=== PATIENT | female | born 1990 | race Caucasian/White ===

== ENCOUNTER 2016-09-20 20:33 | Emergency (ER) | payer OTHER ==
[~2016-09-20] VITALS: Ht 160 cm; Wt 50.0 kg
[~2016-09-20 20:33] MED LIST: LACT PO; METR-1 PO
[2016-09-20 20:38] VITALS: BP 132/96; PULSE 103; RESP 16; TEMP 98.1; O2SAT 99
--- NOTE | 2016-09-20 21:20 | PD ---
HPI Chief Complaint: Related Problem Time Seen by Provider: 21:16 Travel History International Travel<30 days: No Contact w/Intl Traveler<30days: No Traveled to known affect area: No History of Present Illness HPI Patient comes in for evaluation of bilateral hand swelling over the past days. Patient states they're only swollen and the morning when she first wakes up and then by noon they have resolved. Patient states she is about 4 weeks and contact her OB that she has not seen yet, but has an appointment on and was told to come to the emergency department for further treatment and evaluation. Patient states her hands used to do this when she was using IV drugs but has been clean since June. Patient denies any fevers, pain with this, loss or change in bowel or bladder, vaginal discharge, vaginal bleeding, dysuria, back pain, nausea, vomiting, chest pain, shortness of breath, or other concerns. Patient does states that she eats a lot of salty foods especially pickles. PFSH Past Medical History Autoimmune Disease: No Anxiety: Yes Cancer: No Cardiovascular Problems: Yes Diminished Hearing: No Endocrine: No Genitourinary: No Immune Disorder: No Musculoskeletal: No Neurologic: No Psychiatric: No Reproductive: No Respiratory: No Immunizations Current: No ?: LMP: 08/13/16 : 2 Para: 2 Miscarriage: 0 : 0 Past Surgical History AICD: No Arteriovenous Shunt: No Insulin Pump: No Joint Replacement: No Pacemaker: No Social History Alcohol Use: No Tobacco Use: Yes (1 ppd) Substance Use: No (reformed iv dilaudid 3x/d/cocaine sometimes) Allergies-Medications (Allergen,Severity, Reaction): Coded Allergies: *MDRO Multi-Drug Resistant Organism (Unverified Adverse Reaction, Unknown , 09/20/16) 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 Cleared per Infection Control. Reported Meds & Prescriptions Reported Meds & Active Scripts Active Keflex (Cephalexin) 500 Mg Cap 500 Mg PO Q12H 10 Days Review of Systems Except as stated in HPI: all other systems reviewed are Neg Physical Exam Narrative GENERAL: Well-developed, well nourished, in no acute distress, and non-ill appearing. SKIN: Warm and dry. HEAD: Atraumatic. Normocephalic. EYES: Pupils equal and round. EOMI. No scleral icterus. No injection or drainage. ENT: No nasal bleeding or discharge. Mucous membranes pink and moist. NECK: Trachea midline. Supple. No nuclear rigidity. RESPIRATORY: No accessory muscle use. No respiratory distress. MUSCULOSKELETAL: No obvious deformities. No clubbing. No cyanosis. No edema. Full range of motion. Wrist: FROM and equal BL with passive flexion, extension, and pronation/supination. Capillary refill less than 2 seconds and equal BL. FROM and equal BL. Strength equal BL. NV intact. Flexion and extension of thumb equal BL. Equal strength and movement with abduction/adductions of BL fingers. Director [employer] strength equal BL. No tenderness to the anatomical snuffbox. NEUROLOGICAL: Awake and alert. No obvious cranial nerve deficits. Motor grossly within normal limits. Normal speech. PSYCHIATRIC: Appropriate mood and affect; insight and judgment normal. Data Data Last Documented VS Vital Signs Date Time Temp Pulse Resp B/P Pulse Ox O2 Delivery O2 Flow Rate FiO2 09/20/16 20:38 98.1 103 16 132/96 99 Orders Urinalysis - C+S If Indicated (09/20/16 21:15) Urine Culture (09/20/16 21:25) Labs Laboratory Tests Test 09/20/16 21:25 Urine Color YELLOW Urine Turbidity HAZY Urine pH 7.0 Urine Specific [place] 1.017 Urine Protein NEG mg/dL Urine Glucose (UA) NEG mg/dL Urine Ketones TRACE mg/dL Urine Occult Blood NEG Urine Nitrite NEG Urine Bilirubin NEG Urine Urobilinogen LESS THAN 2.0 MG/DL Urine Leukocyte Esterase MOD Urine RBC 12 /hpf Urine WBC 25 /hpf Urine Squamous Epithelial 19 /hpf Cells Urine Bacteria OCC /hpf Microscopic Urinalysis Comment CULTURE INDICATED MDM Medical Decision Making Medical Screen Exam Complete: Yes Emergency Medical Condition: No Differential Diagnosis Edema, abscess, cellulitis, UTI, preeclampsia, other Narrative Course Patient in no obvious distress upon re-evaluation. All pertinent laboratory result(s) discussed with patient. Patient was asked if they wanted to speak to my attending, which the patient did not wish to do at this time. Any questions/ concerns in reference to patient diagnosis/condition discussed and clarified prior to patient's discharge. Reinforced sheer importance of close follow up with patient's OB as scheduled. Instructed patient to return to ED immediately, if symptoms return/worsen. Pt showed understanding of above instructions. Further instructions and recommendations were detailed in discharge paperwork. Pt ambulated without difficulty out of ED at discharge. Diagnosis Primary Impression: Urinary tract infection Qualified Code: N39.0 - Urinary tract infection without hematuria, site unspecified Additional Impression: Bilateral hand swelling Patient Instructions: General Instructions, Urinary Tract Infection in (ED) Additional Instructions: Follow-up with your OB on as scheduled. Take all medication as prescribed. Continue taking her vitamins. Reduce your sodium intake. Return to the emergency department if symptoms get worse. Med/Other Pt SpecificInfo: Prescription(s) given Scripts Cephalexin (Keflex)500 Mg Xxy721 Mg PO Q12H 10 Days Ref 0 Prov:Tova Price MD 09/20/16 Disposition: 01 DISCHARGE HOME Condition: Stable Fortunato Tobar Sep 20, 2016 21:20
[2016-09-20 22:24] LABS: BACTERIA, URINE OCC /hpf; BLOOD, URINE NEG (NEG); COMMENT (UR) CULTURE INDICATED; CULTURE IF INDICATED CULTURE INDICATED; GLUCOSE,URINE NEG (NEG); KETONE, URINE TRACE mg/dL (NEG); NITRITE,URINE NEG (NEG); SQUAMOUS EPITHELIAL CELL URINE 19 /hpf (0-5); URINE COLOR YELLOW (YELLW/STRAW)
[2016-09-20] MEDS ORDERED: CEPH-460 PO (22:33)
== END 2016-09-20 22:36 | disposition home or self-care (01) ==
LOC: NEPB 20:33
DX: O23.41 Unspecified infection of urinary tract in pregnancy, first trimester (principal); B96.89 Other specified bacterial agents as the cause of diseases classified elsewhere; F17.210 Nicotine dependence, cigarettes, uncomplicated; Z3A.01 Less than 8 weeks gestation of pregnancy
CPT/HCPCS: 81001; 87086; 99283